=== PATIENT | male | born 1970 | race Hispanic/Latino ===

== ENCOUNTER 2017-02-05 20:48 | Emergency (ER) | payer MEDICAID ==
[2017-02-05] MEDS ORDERED: NARCAN 0.4 MG/1 ML IV ONE (21:24)
[2017-02-05] MEDS ORDERED: NACL 0.9% 1000 ML 1,000 ML IV ONE (21:24)
[2017-02-05 21:43] LABS: Basophils % (Auto) 0.2 % (0.0-1.8); Eosinophils % (Auto) 1.7 % (0.0-4.3); Hematocrit 38.2 % (35.5-45.6); Hemoglobin 12.8 gm/dl (11.8-15.2); Mean Corpuscular HGB Conc 33 % (32-34); Mean Corpuscular Hemoglobin 31 pg (28-32); Mean Corpuscular Volume 91 fl (84-94); Platelet Count 192 K/mm3 (140-440); Red Blood Count 4.18 M/mm3 (3.65-5.03); Red Cell Distribution Width 13.1 % (13.2-15.2); White Blood Count 7.8 K/mm3 (4.5-11.0)
[2017-02-05 22:05] LABS: Alanine Aminotransferase 21 units/L (7-56); Albumin 3.8 g/dL (3.9-5); Albumin/Globulin Ratio 1.3 %; Alkaline Phosphatase 62 units/L (35-129); Anion Gap 14 mmol/L; BUN/Creatinine Ratio 16.66; Blood Urea Nitrogen 15 mg/dL (9-20); Carbon Dioxide 29 mmol/L (22-30); Chloride 98.3 mmol/L (98-107); Glucose 95 mg/dL (75-100); Potassium 3.5 mmol/L (3.6-5.0); Sodium 138 mmol/L (137-145); Total Protein 6.7 g/dL (6.3-8.2)
--- NOTE | 2017-02-05 22:37 | XRay Report ---
FINAL REPORT PROCEDURE: Chest. TECHNIQUE: Portable AP view. HISTORY: Shortness of breath. COMPARISON: No prior studies are available for comparison. FINDINGS: The heart and mediastinum appear normal. The lungs are clear and well expanded. There are no pleural effusions. The soft tissues and regional skeleton are unremarkable. IMPRESSION: Negative portable chest.
[2017-02-05 23:18] LABS: Urine Drugs of Abuse Note Disclamer
[2017-02-05 23:27] LABS: Bilirubin,Urine NEG (Negative); Blood,Urine NEG (Negative); Ketones,Urine TR mg/dL (Negative); Leukocyte Esterase,Urine NEG (Negative); Mucus,Urine 3+ /HPF; Nitrite,Urine NEG (Negative); Urobilinogen,Urine < 2.0 mg/dL (<2.0)
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
[2017-02-06] MEDS ORDERED: NARCAN 0.4 MG/1 ML IV ONE (05:19)
[2017-02-06 10:13] VITALS: BP 140/63
== END 2017-02-06 19:28 ==
LOC: ED 20:48
DX: T42.4X1A Poisoning by benzodiazepines, accidental (unintentional), initial encounter (principal); F11.129 Opioid abuse with intoxication, unspecified; I10 Essential (primary) hypertension; F17.200 Nicotine dependence, unspecified, uncomplicated; G89.29 Other chronic pain; Y92.89 Other specified places as the place of occurrence of the external cause
CPT/HCPCS: 36415; 51702; 71010; 80053; 80307; 81001; 85025; 93005; 93010; 96361; 96374; 96376; 99285; G0480; J2310; J7030; 80320